=== PATIENT | male | born 2000 | race Hispanic/Latino ===

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

== ENCOUNTER 2018-11-18 14:08 | Emergency (ER) | payer OTHER ==
--- NOTE | 2018-11-18 17:05 | Ultrasound Report ---
PROCEDURE: US TESTICULAR DOPPLER COMP TECHNIQUE: Ultrasound scrotum with pulse and color Doppler evaluation HISTORY: testicular pain COMPARISONS: FINDINGS: Right testicle measures 5.2 x 2.0 x 3.7 cm. Normal echogenicity. There is normal vascular flow seen. Color Doppler evaluation Left testicle 4.8 x 2.0 x 3.1 cm. Normal echogenicity. Normal vascular flow seen of the skull Doppler evaluation No evidence for epididymal enlargement bilaterally. No evidence for hydrocele or varicocele IMPRESSION: Scrotal ultrasound. This document is electronically signed by Ayaan Dahl MD., November 18 2018 05:02:44 PM ET
[2018-11-18 18:16] LABS: Bilirubin,Urine NEG (Negative); Blood,Urine NEG (Negative); Color,Urine Amber (Yellow); Protein,Urine <15 mg/dL mg/dL (Negative); Urobilinogen,Urine < 2.0 mg/dL (<2.0)
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
[2018-11-18 22:15] VITALS: BP 123/60
== END 2018-11-18 22:14 | disposition home or self-care (01) ==
LOC: ED 14:08
DX: N50.812 Left testicular pain (principal); J45.909 Unspecified asthma, uncomplicated; Z91.018 Allergy to other foods
CPT/HCPCS: 81001; 87086; 93975